=== PATIENT | male | born 1980 | race Hispanic/Latino ===

== ENCOUNTER → 2020-01-21 | Day surgery (SDC) | payer SELFPAY ==
[~2020-01-21] MED LIST: Bupivacaine 0.25% HCL 30 ML VIAL ONE; Dexamethasone 20 MG/5 ML VIAL ONE; Fentanyl 100 MCG/2 ML VIAL ONE; Glycopyrrolate 0.2 MG/ML 5 ML SYRINGE ONE; Iopamidol-370 76% 500 ML 1 ML ONE; Ketorolac Tromethamine 30 MG/ML VIAL ONE; Lidocaine 1% PF 5 ML VIAL ONE; Lidocaine 1% w/Epinephrine 1:100K 20 ML VIAL ONE; Morphine 4 MG/ML VIAL ONE; Ondansetron PF 4 MG/2 ML Vial ONE; PROPOFOL 200 MG/20 ML VIAL ONE; Pantoprazole 40 MG VIAL ONE; Rocuronium Bromide 10 MG/ML (10ML VIAL) ONE; cefOXitin Sodium/Dextrose,Iso 2 GM in Premix Bag 1 BAG IVPB SCH
[2020-01-21 10:54] LABS: #Monocytes 0.6 thou/uL (0.11-0.59); #Neutrophils 12.1 thou/uL (1.40-6.50); %Basophils 0.3 % (0.0-1.0); %Eosinophils 0.2 % (0.0-10.0); %Lymphocytes 6.9 % (21.0-51.0); %Monocytes 4.5 % (0.0-10.0); %Neutrophils 88.2 % (42.0-75.0); Hemoglobin 15.4 g/dL (14.0-18.0); Mean Corpuscular HGB CONC 33.9 g/dL (32.0-36.0); Mean Corpuscular Hemoglobin 29.5 pg (27.0-31.0); Mean Corpuscular Volume 86.9 fL (78.0-98.0); Mean Platelet Volume 7.3 fL (7.4-10.4); Platelet Count 242 thou/uL (130-400); RBC Distribution Width 11.7 % (11.5-14.5); Red Blood Cell (RBC) Count 5.23 mill/uL (4.70-6.10); White Blood Cell (WBC) Count 13.7 thou/uL (4.8-10.8)
[2020-01-21 11:06] LABS: Albumin 4.6 g/dL (3.5-5.0); Anion Gap 13 mmol/L (10-20); BUN (Urea Nitrogen) 14 mg/dL (8.9-20.6); Bilirubin, Total 1.6 mg/dL (0.2-1.2); Calc. Creatinine Clearance 0 mL/min (70-130); Calcium 9.4 mg/dL (7.8-10.44); Carbon Dioxide 25 mmol/L (22-29); Chloride 101 mmol/L (98-107); Estimated GFR-MDRD 68; Globulin 2.9 g/dL (2.4-3.5); Glucose 127 mg/dL (70-105); Potassium 4.1 mmol/L (3.5-5.1); Protein, Total 7.5 g/dL (6.0-8.3); Sodium 135 mmol/L (136-145)
[2020-01-21 11:07] LABS: ALT (SGPT) 23 U/L (8-55); AST (SGOT) 15 U/L (5-34); Alkaline Phosphatase 64 U/L (40-110); Lipase 18 U/L (8-78)
--- NOTE | 2020-01-21 12:26 | CT ---
ABDOMEN AND PELVIC CT SCAN WITH IV CONTRAST: Date: 01/21/2020 HISTORY: Abdominal pain, including epigastric and periumbilical pain. FINDINGS: The lung bases are clear. The visualized liver, gallbladder, pancreas, spleen, and adrenal glands are unremarkable. No evidence for renal calculus or acute obstruction. There is an abnormal appendix with dilatation up to 1.1 cm with some multiple faint appendicoliths and fluid within the appendix wi th some surrounding periappendiceal fat stranding, evidence for acute appendicitis. No evidence for e xtraluminal gas or abscess. IMPRESSION: Evidence for acute appendicitis. Findings discussed with Jyotsna Mack in this regard at 1150 hours. CODE CR.
[2020-01-21 12:49] LABS: Bilirubin Negative (Negative); Blood, Urine Negative (Negative); Clarity Clear (Clear); Glucose, Urine (Dipstick) Normal (Negative); Leukocyte Negative Leu/uL (Negative); Nitrite Negative (Negative); Protein, Urine (Dipstick) Negative (Neg-Trace); Urobilinogen Normal mg/dL (Less than 2)
--- NOTE | 2020-01-21 13:38 | HP ---
GENERAL SURGEON: Dr. Salazar. CONSULTING PHYSICIAN: None. HISTORY OF PRESENT ILLNESS: The patient is a 39-year-old male, who presented to the emergency department complaining of periumbilical and midline abdominal pain, which started at around 2:00 a.m. He denies nausea or vomiting, and has had two bowel movements today. He has not eaten anything since 8:00 p.m. last night. He has no surgical history. He has moderate midline abdominal tenderness on my evaluation. He denies fevers or chills. REVIEW OF SYSTEMS: All additional 10-point review of systems is negative except as indicated above. PAST MEDICAL HISTORY: Asthma. PAST SURGICAL HISTORY: None. SOCIAL HISTORY: The patient denies tobacco, drug, or alcohol use; however, he reports smoking CBD via vape pen occasionally for pain control of back pain. He denies any other drug use, however. 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 MEDICATIONS: He has a rescue inhaler, which he has not used in over a year. ALLERGIES: NO KNOWN DRUG ALLERGIES. PHYSICAL EXAMINATION: VITAL SIGNS: Temperature 97.7, pulse 75, respirations 16, oxygen saturation 98% on room air, and blood pressure 140/99. GENERAL: Well-appearing middle-aged male, lying in bed with no signs of acute distress. PULMONARY: Equal chest rise and fall. Clear breath sounds bilaterally. No signs of acute respiratory distress. CARDIAC: Regular rate and rhythm. No murmurs, gallops, or rubs. GI/ABDOMEN: Soft, mildly tender along the midline, and nondistended. EXTREMITIES: 2+ pulses in all extremities. Gross motor and sensation are intact. No significant swelling noted. NEURO: GCS is 15. LABORATORY FINDINGS: White count 13.7, hemoglobin 15.4, hematocrit 45.4, and platelets 242. Sodium 134, potassium 4.1, chloride 101, bicarb 25, BUN 14, creatinine 1.18, glucose 127, lipase 18, and total bilirubin 1.6. AST 15, ALT 23, and alkaline phosphatase 64. DIAGNOSTIC FINDINGS: CT of abdomen and pelvis demonstrates evidence for acute appendicitis. ASSESSMENT: 1. Acute appendicitis. 2. History of asthma. PLAN: Dr. Salazar is to take the patient to the OR today for laparoscopic appendectomy. The risks and benefits of the procedure were discussed with the patient. Dr. Salazar will see the patient in Day Stay and further discuss risks and benefits and sign consent forms with the patient at that time. He will receive 2 g of Mefoxin IV. He will likely be discharged home postoperatively. This patient was discussed with Dr. Salazar before this dictation. Job ID: [id number]
--- NOTE | 2020-01-21 23:04 | OP ---
DATE OF PROCEDURE: 01/21/2020 PREOPERATIVE DIAGNOSIS: Acute appendicitis. POSTOPERATIVE DIAGNOSIS: Acute appendicitis. OPERATION PERFORMED: Laparoscopic appendectomy. ANESTHESIA: General endotracheal. ESTIMATED BLOOD LOSS: 5 mL. FLUIDS GIVEN: 700 mL of crystalloids. COUNTS: Sponge and instrument counts were verified as correct x2. COMPLICATIONS: None apparent at the time of operation. INDICATIONS FOR OPERATION: This is a 39-year-old man, who presented with 24-hour history of what started as a periumbilical abdominal pain, which is settled in the right lower quadrant. Clinical radiographic examination was consistent with acute appendicitis, for which the patient was brought to the operating room for appendectomy. Findings are consistent with suppurative retrocecal appendix with no evidence of perforation. DESCRIPTION OF PROCEDURE: Informed consent was obtained from the patient, brought to the operating room and placed in supine position. Following general anesthesia, abdomen was sterilely prepped and draped in usual fashion. The skin below the umbilicus was infiltrated with 0.25% Marcaine with epinephrine. A small curvilinear infraumbilical incision was made using an 11 scalpel. Umbilical stalk was grasped with Deion and elevated. Veress needle was introduced through the incision and placed in peritoneal cavity through which the abdomen was insufflated with 3 L of CO2 gas. Intraabdominal pressure was noted at 3 mmHg. Following abdominal insufflation, Veress needle was removed. A 5 mm trocar introduced using a Visiport under laparoscopy. Laparoscopy confirmed proper placement of the port, no injuries to underlying structures. Additional laparoscopy revealed the right lower quadrant partially obscured by omental adhesions. Under direct laparoscopy, two 5 mm suprapubic and left lower quadrant ports were placed after the overlying skin was infiltrated with 0.25% Marcaine with epinephrine, and appropriate incision was made. The patient was placed in a Trendelenburg position and rotated to his left. I introduced a Prestige grasper through the left lower quadrant port using this to bluntly take down omental adhesions. The cecum was noted to be quite adhered to the right lateral gutter. The cecum was bluntly dissected off the right lateral gutter using an Endo suction catheter. A suppurative retrocecal appendix was encountered. The Endo Piercy forceps was introduced through the suprapubic port site grasping the appendix, which was elevated. The mesoappendix was sterilely divided down to the base using the LigaSure device with good hemostasis. The appendix itself was divided at the appendiceal-cecal junction between endo loops. The appendix was delivered off the abdominal cavity using an EndoCatch. Operative site was inspected for good hemostasis. Finding no other pathology, laparoscopy was terminated. The small bowel was then run from the ileocecal junction down to proximal 2 feet, finding no Meckel diverticulum. The abdomen was desufflated. All sponge and instruments were removed and accounted for. Skin incisions were closed using 4-0 Monocryl suture in subcuticular fashion. Dermabond was applied over incisional closure. The patient tolerated the operation without any apparent complication and was returned to the recovery room in satisfactory condition. Job ID: [id number]
== END ==
LOC: ERS 10:26 → SDC 13:39
PROVIDERS: ATTEND Emergency Medicine
PROC: 0DTJ4ZZ Resection of Appendix, Percutaneous Endoscopic Approach (ICD-10-PCS; principal; 2020-01-21)
DX: K35.80 Unspecified acute appendicitis (principal); K66.0 Peritoneal adhesions (postprocedural) (postinfection); J45.909 Unspecified asthma, uncomplicated
CPT/HCPCS: 36415; 74177; 80053; 81003; 83690; 85025; 88304; 96361; 96374; 96375; 96376; C9113; J0694; J1100; J1885; J2001; J2270; J2405; J2704; J3010; Q9967; S0020